=== PATIENT | female | born 1945 | race Caucasian/White ===

== ENCOUNTER 2022-11-02 04:24 | Emergency (ER) | payer OTHER ==
[~2022-11-02] VITALS: Ht 165.1 cm; Wt 127.0 kg
[~2022-11-02 04:24] MED LIST: AMLO5TAB4 PO; ASPI-1393 PO; ATEN-168 PO; CLOP75TA2 PO; HYDR-3919 PO; LIP40 PO; LOSA100T3 PO; ROPI2TAB29 PO
[2022-11-02 04:26] VITALS: BP_SYST 123
--- NOTE | 2022-11-02 04:35 | NUR ---
Patient triaged and placed in ED BED 01. VSS and patient appears in no acute distress at this time. MD Laws notified of need for MSE.
--- NOTE | 2022-11-02 04:40 | NUR ---
RT at bedside.
[2022-11-02] MEDS ORDERED: GASTROGRAFIN 120 ML ONE (04:59)
--- NOTE | 2022-11-02 07:00 | NUR ---
pt g-tube replaced
--- NOTE | 2022-11-02 07:00 | NUR ---
received report from floyd middleton
[2022-11-02 17:33] VITALS: BP_SYST 125
--- NOTE | 2022-11-02 18:08 | NUR ---
Patient given written and verbal discharge instructions and verbalizes understanding. ER MD DR REZA discussed with patient the results and treatment provided. Patient in stable condition. ID arm band removed. Patient educated on pain management and to follow up with PMD. Pain Scale 0/10. Opportunity for questions provided and answered. Medication side effect fact sheet provided.
== END 2022-11-02 15:00 ==
LOC: SED 04:24
DX: K94.23 Gastrostomy malfunction (principal); E78.5 Hyperlipidemia, unspecified; Z91.040 Latex allergy status; Z79.899 Other long term (current) drug therapy
CPT/HCPCS: 99285; 43762; 74240; Q9963